=== PATIENT | male | born 1975 | race Caucasian/White ===

== ENCOUNTER 2018-10-02 02:23 | Emergency (ER) | payer SELFPAY ==
[2018-10-02] MEDS ORDERED: IPRATROPIUM/ALBUTEROL 0.5-2.5 MG/3 ML AMPUL NEB ONE ×2 (04:02→06:46)
[2018-10-02] MEDS ORDERED: PREDNISONE 20 MG TABLET PO ONE (04:02)
[2018-10-02] MEDS: ALBUTEROL SULFATE 0.083% NEB 2.5 MG/3 ML AMPUL NEB SCH ×2 (04:30→05:18)
--- NOTE | 2018-10-02 06:00 | RADIOLOGY REPORT (SQ) ---
CLINICAL HISTORY: cough COMPARISON: None. TECHNIQUE: XR CHEST 2 VIEWS 10/02/2018 4:03 AM CDT FINDINGS: Cardiac silhouette is normal in size. Lungs are clear without consolidation, atelectasis, mass or edema. There is no pleural effusion. There is no pneumothorax. There are no acute osseous findings. IMPRESSION: Clear lungs.
--- NOTE | 2018-10-02 06:48 | ER Document Report ---
ED General - General Chief Complaint: Breathing Difficulty Stated Complaint: SHORTNESS OF BREATH Time Seen by Provider: 10/02/18 06:39 TRAVEL OUTSIDE OF THE [place] IN LAST 30 DAYS: No - HPI Notes: Patient is a 43-year-old male who presents emergency department for evaluation of cough. Is been on off for the last several days. He states his been having hot and cold flashes, but no yoselin fevers to his knowledge. He has had some episodes where he felt close to posttussive emesis, but no yoselin nausea or vomiting. He has a headache from coughing. He denies any chest pain. He denies any real difficulty breathing except during coughing spells. - Related Data Allergies/Adverse Reactions: No Known Allergies Allergy (Unverified 10/02/18 02:30) Home Medications: Adderall Past Medical History - General Information source: Patient - Social History Smoking Status: Current Every Day Smoker Frequency of alcohol use: None Drug Abuse: None Family History: Reviewed & Not Pertinent Patient has suicidal ideation: No Patient has homicidal ideation: No Renal/ Medical History: Denies: Hx Peritoneal Dialysis Psychiatric Medical History: Reports: Hx Attention Deficit Hyperactivity Disorder Review of Systems - Review of Systems Constitutional: See HPI EENT: No symptoms reported Cardiovascular: No symptoms reported Respiratory: See HPI Gastrointestinal: No symptoms reported Genitourinary: No symptoms reported Musculoskeletal: No symptoms reported Skin: No symptoms reported Neurological/Psychological: No symptoms reported Physical Exam - Vital signs Vitals: Temp Pulse Resp BP Pulse Ox 98.0 F 101 H 24 H 144/91 H 96 10/02/18 02:33 10/02/18 02:33 10/02/18 02:33 10/02/18 02:33 10/02/18 02:33 - Notes Notes: Vital signs reviewed, please refer to chart. Head is normocephalic, atraumatic. Pupils equal round, reactive to light. Neck is supple without meningismus. Heart is regular rate and rhythm. Lungs reveal significant expiratory wheezes and prolonged expiratory phase throughout. Abdomen is soft, nontender, normoactive bowel sounds throughout. Extremities without cyanosis, clubbing. Posterior calves are nontender. Peripheral pulses are equal. Skin is warm and dry. Patient is awake, alert, neurological exam is nonfocal. Course - Re-evaluation Re-evalutation: 10/02/18 06:48 Patient presents to the emergency department for evaluation. He had initial orders as placed through triage. He was medicated with prednisone, DuoNeb. He was sent for chest x-ray. Chest x-ray is found to be unremarkable. At the time of my evaluation he continued to wheeze. He was given a further DuoNeb. At this point I will send him home with steroids, inhaler. He is counseled to quit smoking. He is to follow-up with primary care, return to the ED with worsening. 10/02/18 08:17 Patient reassessed after single breathing treatment. He is feeling improved, wheezing has diminished markedly. I will then send him home with an inhaler, prednisone taper, and a small amount of cough medication. He is warned with cough medication as pain medicine, please be judicious with this use. He voiced understanding to this. Otherwise he is advised again to quit smoking. Return to the ED with worsening, follow-up with primary care this week. - Vital Signs Vital signs: Temp Pulse Resp BP Pulse Ox 98.0 F 101 H 17 148/84 H 97 10/02/18 02:33 10/02/18 02:33 10/02/18 06:01 10/02/18 06:01 10/02/18 06:01 - Diagnostic Test Radiology reviewed: Reports reviewed Radiology results interpreted by me: 10/02/18 06:48 Chest X-Ray 10/02/18 04:03 IMPRESSION: Clear lungs. Discharge - Discharge Clinical Impression: Acute wheezy bronchitis Condition: Stable Disposition: HOME, SELF-CARE Instructions: Bronchitis With Bronchospasm (Wheezing) ([facility]) Additional Instructions: Take prednisone as directed, starting tomorrow. Use albuterol inhaler every 4-6 hours as needed for difficulty breathing. Take cough medicine as needed for severe cough. Watch for dizziness, drowsiness, constipation with this medication. Follow-up with primary care this week. Return to the emergency department with worsening or new concerning symptoms of any sort. Forms: Smoking Cessation Education
[2018-10-02 08:18] VITALS: BP 141/68
== END 2018-10-02 08:31 | disposition home or self-care (01) ==
LOC: ER 02:23
DX: J20.9 Acute bronchitis, unspecified (principal); R05 Cough; R51 Headache; R06.2 Wheezing; F17.200 Nicotine dependence, unspecified, uncomplicated
CPT/HCPCS: 94640 ×2; 99283; 71046; J7512; J7620

== ENCOUNTER 2019-11-23 19:05 | Emergency (ER) | payer SELFPAY ==
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
[2019-11-23 19:52] LABS: ABSOLUTE BASOPHILS # (AUTO) 0.1 10^3/uL (0.0-0.2); ABSOLUTE EOSINOPHILS # (AUTO) 0.2 10^3/uL (0.0-0.6); ABSOLUTE MONOCYTES (AUTO) 0.4 10^3/uL (0.1-1.4); EOSINOPHILS % (AUTO) 2.7 % (0-6); TOTAL CELLS COUNTED % (AUTO) 100 %
[2019-11-23 19:56] LABS: ABSOLUTE LYMPHOCYTES (AUTO) 1.7 10^3/uL (0.5-4.7); ABSOLUTE NEUT (AUTO) 4.5 10^3/uL (1.7-8.2); HEMATOCRIT 45.8 % (37.9-51.0); HEMOGLOBIN 15.7 g/dL (13.5-17.0); LYMPHOCYTES % (AUTO) 25.1 % (13-45); MEAN CORPUSCULAR HEMOGLOBIN 29.7 pg (27.0-33.4); MEAN CORPUSCULAR HGB CONC 34.4 g/dL (32.0-36.0); MEAN CORPUSCULAR VOLUME 86 fl (80-97); MONOCYTES % (AUTO) 6.3 % (3-13); PLATELET COUNT 356 10^3/uL (150-450); SEGMENTED NEUTROPHILS % (AUTO) 64.9 % (42-78)
[2019-11-23 20:16] LABS: ALBUMIN 4.6 g/dL (3.5-5.0); ALKALINE PHOSPHATASE 65 U/L (38-126); ANION GAP 11 (5-19); ASPARTATE AMINO TRANSFERASE 37 U/L (17-59); BILIRUBIN,DIRECT 0.3 mg/dL (0.0-0.4); BILIRUBIN,TOTAL 0.6 mg/dL (0.2-1.3); BLOOD UREA NITROGEN 15 mg/dL (7-20); CALCIUM 9.8 mg/dL (8.4-10.2); CARBON DIOXIDE 28 mmol/L (22-30); CHLORIDE 102 mmol/L (98-107); GLUCOSE 115 mg/dL (75-110); POTASSIUM 4.4 mmol/L (3.6-5.0); TOTAL PROTEIN 7.5 g/dL (6.3-8.2)
[2019-11-23 20:17] LABS: APPEARANCE,URINE SLIGHTLY-CLOUDY; BILIRUBIN,URINE SMALL (NEGATIVE); COLOR,URINE AMBER; GLUCOSE, URINE NEGATIVE (NEGATIVE); KETONES,URINE TRACE mg/dL (NEGATIVE); LEUKOCYTE ESTERASE,URINE NEGATIVE (NEGATIVE); NITRITE,URINE NEGATIVE (NEGATIVE); PROTEIN,URINE 100 mg/dL (NEGATIVE); URINE SPECIFIC GRAVITY 1.033
[2019-11-23 20:18] VITALS: BP 140/77
[2019-11-23 20:18] LABS: ACETAMINOPHEN < 10 ug/mL (10-30); ALCOHOL < 10 mg/dL (NONE DETECTED); SALICYLATE < 1.0 mg/dL (2.0-20.0)
[2019-11-23 20:29] LABS: URINE AMPHETAMINES SCREEN NEGATIVE; URINE BARBITURATES SCREEN NEGATIVE; URINE BENZODIAZEPINES SCREEN NEGATIVE; URINE COCAINE SCREEN NEGATIVE; URINE METHADONE SCREEN NEGATIVE; URINE PHENCYCLIDINE SCREEN NEGATIVE
[2019-11-23 20:30] LABS: URINE MARIJUANA (THC) SCREEN UNCONFIRMED POSITIVE
--- NOTE | 2019-11-23 20:41 | RADIOLOGY REPORT (SQ) ---
CLINICAL INDICATION: injury. Pain. TECHNIQUE: 3 view(s) were obtained of the right wrist. COMPARISON: None. FINDINGS: No acute displaced fracture is identified of the wrist. Alignment appears anatomic. Joint spaces are within normal limits for age. Mild soft tissue swelling. IMPRESSION: No evidence of acute displaced fracture of the wrist.
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
[2019-11-23] MEDS ORDERED: DIPHENHYDRAMINE HCL 50 MG CAPSULE PO ONE (21:06)
--- NOTE | 2019-11-23 21:49 | EKG REPORT ---
SEVERITY:- NORMAL ECG - SINUS RHYTHM : Confirmed by: Afua Rubin MD 23-Nov-2019 21:48:44
== END 2019-11-23 22:00 | disposition home or self-care (01) ==
LOC: ER 19:05
DX: F22 Delusional disorders (principal); M25.531 Pain in right wrist; F17.200 Nicotine dependence, unspecified, uncomplicated
CPT/HCPCS: 36415; 80053; 80307; 81001; 85025; 93005; 93010; 99285

== ENCOUNTER 2020-03-20 02:46 | Emergency (ER) | payer SELFPAY ==
[2020-03-20] MEDS ORDERED: ACETAMINOPHEN 325 MG TABLET PO ONE (04:10)
[2020-03-20] MEDS ORDERED: IBUPROFEN 600 MG TABLET PO ONE (04:10)
--- NOTE | 2020-03-20 04:18 | ER Document Report ---
ED General - General Chief Complaint: Medical Complaint Stated Complaint: HYPOTHERMIA Time Seen by Provider: 03/20/20 04:00 Primary Care Provider: [facility] [Provider Group] - Follow up as needed [facility] [Provider Group] - Follow up as needed [facility] [Provider Group] - Follow up as needed [facility] [Provider Group] - Follow up as needed Mode of Arrival: Ambulatory Information source: Patient Notes: 44-year-old male presented to ED for complaint of being cold. He states he felt cold and felt like his fingers were frequent. He stated that he felt much worse than he normally does been out in the cold. He did come in and got cleaned off removed his blood cultures and and stated he felt much better. When these vital signs were taken his temperature was normal. The time I had etc. assessed him his temperature was 98 7. He states he had washed up and changed his out of his work clothes and he felt much better. Constitutional: Negative for fever. HENT: Negative for sore throat. Eyes: Negative for visual changes. Cardiovascular: Negative for chest pain. Respiratory: Negative for shortness of breath. Gastrointestinal: Negative for abdominal pain, vomiting or diarrhea. Genitourinary: Negative for dysuria. Musculoskeletal: Negative for back pain. Skin: Negative for rash. Neurological: Negative for headaches, weakness or numbness. 10 point ROS negative except as marked above and in HPI. VITAL SIGNS: Within normal limits. GENERAL: No acute distress, non-toxic appearance. HEAD: Normal with no signs of head trauma. EYES: PERRLA, EOMI, conjunctiva normal, no discharge. EARS: Hearing grossly intact. NOSE: Normal. THROAT: Oropharynx is normal. NECK: Normal range of motion, no tenderness, supple, no lymphadenopathy, No adenopathy, no JVD. CHEST: Clear breath sounds bilaterally. No wheezes, rales, or rhonchi. CARDIAC: Regular rate and rhythm. S1 and S2, without murmurs, gallops, or rubs. VASCULAR: No Edema. Peripheral pulses normal and equal in all extremities. ABDOMEN: Normal and soft with no tenderness, no masses or pulsatile masses. GASTROINTESTINAL: Bowel sounds normal GENITOURINARY: Normal, No tenderness LYMPATHTIC: No lymphadenopathy noted. MUSCULOSKELETAL: Good range of motion of all major joints. Extremities without clubbing, cyanosis or edema. NEUROLOGICAL: Alert and oriented x 3. No focal sensory or strength deficits. Speech normal. Follows commands appropriately. PSYCHIATRIC: Normal Affect, judgement and mood. SKIN: Normal appearance with no rashes or lesions. TRAVEL OUTSIDE OF THE [place] IN LAST 30 DAYS: No - HPI Onset: Just prior to arrival Onset/Duration: Better Quality of pain: No pain Severity: None Pain Level: Denies Associated symptoms: Other - Stated he felt very cold when he was outside but is not feeling that way now Exacerbated by: Denies Relieved by: Denies Similar symptoms previously: Yes Recently seen / treated by doctor: No - Related Data Allergies/Adverse Reactions: No Known Allergies Allergy (Verified 03/20/20 03:16) Past Medical History - General Information source: Patient - Social History Smoking Status: Current Every Day Smoker Cigarette use (# per day): Yes - 1/2 to 1 pack/day Smoking Education Provided: Yes Frequency of alcohol use: None Drug Abuse: None Lives with: Homeless Family History: Reviewed & Not Pertinent - Past Medical History Cardiac Medical History: Reports: None Pulmonary Medical History: Reports: None EENT Medical History: Reports: None Neurological Medical History: Reports: None Endocrine Medical History: Reports: None Renal/ Medical History: Reports: None Malignancy Medical History: Reports None GI Medical History: Reports: Other - Inguinal hernia repair Musculoskeletal Medical History: Reports Hx Musculoskeletal Deformity, Reports Hx Musculoskeletal Trauma Skin Medical History: Reports None Psychiatric Medical History: Reports: Hx Attention Deficit Hyperactivity Disorder Traumatic Medical History: Reports: Hx Fractures - Multiple Infectious Medical History: Reports: None Past Surgical History: Reports: Hx Inguinal Hernia - Bilateral inguinal hernia repair, Hx Orthopedic Surgery - Neurosurgery Physical Exam - Vital signs Vitals: Temp Pulse BP Pulse Ox 97.3 F 85 122/103 H 100 03/20/20 02:54 03/20/20 02:54 03/20/20 02:54 03/20/20 02:54 Course - Vital Signs Vital signs: Temp Pulse Resp BP Pulse Ox 98.3 F 76 18 118/70 100 03/20/20 04:17 03/20/20 04:17 03/20/20 04:17 03/20/20 04:17 03/20/20 04:17 - Laboratory Results Critical Laboratory Results Reviewed: No Critical Results - Radiology Results Critical Radiology Results Reviewed: No Critical Results Discharge - Discharge Clinical Impression: states he was cold Condition: Stable Disposition: HOME, SELF-CARE Additional Instructions: You were seen today because you felt like you are over cold and you were concerned that you might be hypothermic. Your temperature was in normal range when you came into the emergency room. There are no signs or symptoms of frostbite at this time. He states that the pain is much better at this time after you got cleaned up warmed up. Acetaminophen Acetaminophen may be taken for pain relief or fever control. It's much safer than aspirin, offering a wider range of "safe" dosages. It is safe during . Some brand names are Tylenol, Panadol, Datril, Anacin 3, Tempra, and Liquiprin. Acetaminophen can be repeated every four hours. The following are maximum recommended dosages: WEIGHT Dose Drops Elixir Alisson wable(80mg) (LBS.) drprs=droppers tsp=teaspoon 6 40 mg .4 ml (1/2) 6-11 80 mg .8 ml (full) 1/2 tsp 1 tab 12-16 120 mg 1 1/2 drprs 3/4 tsp 1 1/2 tabs 17-23 160 mg 2 drprs 1 tsp 2 tabs 24-30 240 mg 3 drprs 1 1/2 tsp 3 tabs 30-35 320 mg 2 tsp 4 tabs 36-41 360 mg 2 1/4 tsp 4 1/2 tabs 42-47 400 mg 2 1/2 tsp 5 tabs 48-53 480 mg 3 tsp 6 tabs 54-59 520 mg 3 1/4 tsp 6 1/2 tabs 60-64 560 mg 3 1/2 tsp 7 tabs 65-70 600 mg 3 3/4 tsp 7 1/2 tabs 71-76 640 mg 4 tsp 8 tabs 77-82 720 mg 4 1/2 tsp 9 tabs 83-88 800 mg 5 tsp 10 tabs >89 pounds or adults 650 mg to 900 mg Acetaminophen can be repeated every four hours. Maximum daily dose not to exceed 4000 mg. These maximum recommended dosages are slightly higher than the dosages written on the product container, but these dosages are very safe and well below the toxic dosage for acetaminophen. Ibuprofen Ibuprofen is an excellent, safe drug for pain control. In addition, it has potent antiinflammatory effects which are beneficial, especially in the treatment of injuries, arthritis, or tendonitis. It's best to take ibuprofen with food. Persons with ulcer disease or allergy to aspirin should notify their physician of this before taking ibuprofen. Take the medication exactly as prescribed. Don't take additional doses unless instructed to do so by your doctor. If you develop wheezing, shortness of breath, hives, faintness, stomach pain, vomiting, or dark black stools, return for re-evaluation at once. FOLLOW-UP CARE: If you have been referred to a physician for follow-up care, call the physicians office for an appointment as you were instructed or within the next two days. If you experience worsening or a significant change in your symptoms, notify the physician immediately or return to the Emergency Department at any time for re-evaluation. Forms: Smoking Cessation Education, Elevated Blood Pressure Referrals: [facility] [Provider Group] - Follow up as needed [facility] [Provider Group] - Follow up as needed [facility] [Provider Group] - Follow up as needed [facility] [Provider Group] - Follow up as needed
[2020-03-20 04:19] VITALS: BP 118/70
== END 2020-03-20 04:23 | disposition home or self-care (01) ==
LOC: ER 02:46
DX: Z03.89 Encounter for observation for other suspected diseases and conditions ruled out (principal); F17.210 Nicotine dependence, cigarettes, uncomplicated
CPT/HCPCS: 99282